=== PATIENT | female | born 1960 | race Asian ===

== ENCOUNTER 2018-08-24 08:31 | Day surgery (SDC) | payer OTHER ==
[~2018-08-24] VITALS: Ht 152.4 cm; Wt 47.6 kg
[~2018-08-24 08:31] MED LIST: MIGRAINE MED
[2018-08-24 09:08] VITALS: Ht 152.4 cm; Wt 47.6 kg
[2018-08-24] MEDS ORDERED: IBUP-1545 PO (09:35)
[2018-08-24] MEDS ORDERED: SIMV20TA PO (09:35)
[2018-08-24 09:53] VITALS: BP 118/64; PULSE 61; RESP 18
[2018-08-24] MEDS ORDERED: FENTAnyl 50 MCG/ML VIAL ONE (12:17)
[2018-08-24] MEDS ORDERED: MIDAZOLAM 1 MG/ML 2 ML INJ ONE (12:17)
== END 2018-08-24 14:06 | disposition home or self-care (01) ==
LOC: GIL 08:31
PROVIDERS: ATTEND Internal Medicine Gastroenterology
DX: K92.1 Melena (principal); K64.8 Other hemorrhoids
CPT/HCPCS: 45378; J2250; J3010; Z7610